=== PATIENT | female | born 1960 | race Caucasian/White ===

== ENCOUNTER 2017-03-27 10:45 | Emergency (ER) | payer BC ==
--- NOTE | 2017-03-27 11:43 | ERNOTE ---
Upper Extremity HPI - General Extremities Pain Location: arm: left, forearm: left Time Seen by Provider: 03/27/17 10:59 Source: patient Exam Limitations: no limitations - Immun/Allergies/Home Medications Immunizations: IMMUNIZATION HX Immunizations Up to Date Yes History of Influenza Vaccine Yes Hx Pneumococcal Vaccination No Allergies/Adverse Reactions: Allergies Allergy/AdvReac Type Severity Reaction Status Date / Time No Known Allergies Allergy Unverified 03/27/17 10:53 Home Medications: HOME MEDICATIONS Carvedilol 03/27/17 [Last Taken Unknown] HYDROcodone/ACETAMINOPHEN [[place] 5-325] 1 each PO Q4H #20 tablet 03/27/17 [Last Taken Unknown] Losartan-Hctz 100-12.5 mg Tab 03/27/17 [Last Taken Unknown] Neurontin 03/27/17 [Last Taken Unknown] Plaquenil 03/27/17 [Last Taken Unknown] Prilosec 03/27/17 [Last Taken Unknown] - History of Present Illness Narrative: Patient was preparing supper last night and tripped over the dog and injured her proximal left humerus and left forearm as well as striking the right side of her chest on the refrigerator. She now complains of moderate pain in the respective areas of the injuries. She states she is having some pain on deep breath in the right side of the chest. Occurred: yesterday Location of Incident: home Severity: moderate, severe Method of Injury: Reports: fell Reason for Fall: Reports: tripped Loss of Consciousness: Reports: no loss of consciousness Other Injuries: Reports: none Review of Systems - Review of Systems Constitutional: Present: See HPI EYE: Present: no symptoms reported ENT: Present: no symptoms reported Respiratory: Present: no symptoms reported Cardiology: Present: chest pain Gastrointestinal/Abdominal: Present: no symptoms reported Genitourinary: Present: no symptoms reported Musculoskeletal: Present: other - pain in the area of the left deltoid as well as the left forearm Skin: Present: no symptoms reported Neurological: Present: no symptoms reported Endocrine: Present: no symptoms reported Hematologic/Lymphatic: Present: no symptoms reported Psych: Present: no symptoms reported - Patient's Past Medical History Patient History - Medical: GERD, Headache Patient History - Cardiac/Respiratory: Hypertension Patient History - Cancer: No Hx of Cancer Patient History - Surgical Procedures: Cholecystectomy, , Hysterectomy , Pacemaker Patient History - Other: None - Social History Living Situations: home Abuse History: No History of abuse Psych History: No pertinent hx Smoking Status: Current every day smoker Have you smoked in the past 12 months: Yes Do you dip or chew tobacco: No Alcohol Use: occasionally Drug Use: none - Immunizations Immunizations Up to Date: Yes Hx Pneumococcal Vaccination: No History of Influenza Vaccine: Yes Physical Exam - Physical Exam General Appearance: Present: wd/wn, alert, moderate distress, severe distress Head Exam: Present: normal inspection Eye Exam: Normal inspection: bilateral, PERRL: bilateral Ears, Nose, Throat: Present: normal ENT inspection, H, normal pharynx Neck: Present: normal inspection, nontender Respiratory: Present: no respiratory distress, normal breath sounds, no accessory muscle use, lungs clear, chest tenderness - chest is tender under the right breast, she is splinting somewhat on deep breath as well Cardiovascular/Chest: Present: regular rate, rhythm, no murmur, normal peripheral pulses Gastrointestinal/Abdominal: Present: normal bowel sounds, nontender, nondistended, soft, no organomegaly Rectal Exam: Present: deferred Back Exam: Present: normal inspection, normal range of motion Extremity Exam: Present: normal range of motion, no edema, other - elbow tenderness to the left deltoid left forearm with bruising present in both the deltoid area and the left forearm, she does appear to have reasonable range of motion of the left shoulder Neurological Exam: Present: alert, oriented, normal mood/affect Skin Exam: Present: normal color, warm/dry Lymphatic Exam: Present: no adenopathy ED Progress - Vital Signs Patient's Vital Signs:: I have reviewed the patient's vital signs. Vital Signs: Vital Signs 03/27/17 10:50 Temperature 36.6 C Pulse Rate 63 Respiratory 16 Rate Blood Pressure 162/95 O2 Sat by Pulse 100 Oximetry - X-Ray X-Ray #1 X-Ray: chest Interpretation: Reviewed by me X-Ray #2 X-Ray: ribs Interpretation: Reviewed by me X-Ray #3 X-Ray: humerus Interpretation: Reviewed by me X-Ray #4 X-Ray: forearm Interpretation: Reviewed by me - Progress/Reassessment Chief Complaint: Upper Extremity Injury/Problem Plan - Plan Plan: While there are no obvious fractures noted on any x-rays there are some questionable areas in both the left elbow, and right rib cage. Exactly where the questionable fractures could be his wishes painful and patient will be placed in a sling for the left elbow area and pain medicine for the right rib cage. Patient was instructed to call her family physician to be checked out in approximately a week give or take. She is aware she may need to have a second set of x-rays done as these may reveal an occult fracture. Departure Clinical Impression: Shoulder contusion Qualifiers: Encounter type: initial encounter Laterality: left Qualified Code(s): S40.012A - Contusion of left shoulder, initial encounter Elbow contusion Qualifiers: Encounter type: initial encounter Laterality: left Qualified Code(s): S50.02XA - Contusion of left elbow, initial encounter Rib contusion Qualifiers: Encounter type: initial encounter Laterality: right Qualified Code(s): S20.211A - Contusion of right front wall of thorax, initial encounter - Departure Disposition: Home self-care Condition: Good Instructions: Contusion, [id number], Elbow Contusion, Chest Contusion, Easy- to-Read, Rib Fracture, [id number] Additional Instructions: Call your family physician for an appointment Prescriptions: HYDROcodone/ACETAMINOPHEN [[place] 5-325] 1 each PO Q4H #20 tablet
[2017-03-27 12:30] VITALS: BP 158/106
== END 2017-03-27 12:45 | disposition home or self-care (01) ==
LOC: ER 10:45
DX: S40.012A Contusion of left shoulder, initial encounter (principal); S50.02XA Contusion of left elbow, initial encounter; S20.211A Contusion of right front wall of thorax, initial encounter; W18.31XA Fall on same level due to stepping on an object, initial encounter; Y93.G3 Activity, cooking and baking; Y92.000 Kitchen of unspecified non-institutional (private) residence as the place of occurrence of the external cause; F17.200 Nicotine dependence, unspecified, uncomplicated

== ENCOUNTER 2019-01-19 05:13 | Inpatient (IN) ==
[2019-01-19] MEDS ORDERED: MORPHINE SULFATE 2 MG/ML DISP.SYRIN IV ONE ×2 (05:29→06:13)
--- NOTE | 2019-01-19 05:34 | ERNOTE ---
Trauma/Assault HPI - General Stated Complaint: ETOH. FALL HIP PAIN Time Seen by Provider: 01/19/19 05:16 Source: patient Exam Limitations: intoxication - Immun/Allergies/Home Medications Immunizations: IMMUNIZATION HX Immunizations Up to Date Yes History of Influenza Vaccine Yes Hx Pneumococcal Vaccination Yes Allergies/Adverse Reactions: Allergies No Known Allergies Allergy (Unverified 03/27/17 10:53) Home Medications: HOME MEDICATIONS Gabapentin [Neurontin] 300 mg PO TID 01/19/19 [Last Taken Unknown] Losartan Potassium 100 mg PO DAILY 01/19/19 [Last Taken Unknown] Omeprazole [Prilosec] 20 mg PO DAILY 01/19/19 [Last Taken Unknown] - History of Present Illness Narrative: Pt states she was at home painting and she fell. She is unsure why or how. She states she laid on the floor for 2 hours before her woke up and called EMS. She complains of left hip and left wrist pain. Location Occurred: Reports: home Pain Location: Reports: upper extremity, lower extremity Method of Injury: Reports: fall Severity: moderate Modifying Factors - (Improves): Reports: immobilization Modifying Factors - (Worsens): Reports: movement Loss of Consciousness: Reports: unsure Review of Systems - Review of Systems Respiratory: Absent: shortness of breath Cardiology: Absent: chest pain Gastrointestinal/Abdominal: Present: other - heartburn. Absent: nausea, vomiting Musculoskeletal: Present: See HPI Skin: Absent: rash Neurological: Absent: numbness, tingling Medical History (Updated 01/19/19 @ 06:41 by Robert Tolliver DO) Hypertension Irregular heart rhythm Pacemaker Dual Surgical History: Surgical History (Updated 01/19/19 @ 05:43 by Loly Zurita RN) History of cardiac radiofrequency ablation History of delivery History of cholecystectomy Status post biventricular cardiac pacemaker insertion Social History: (Last Reviewed 01/19/19 @ 06:01 by Robert Tolliver DO) Tobacco: Smoking Status: Current every day smoker Smoking cigarettes per day: 10 Alcohol: alcohol intake frequency: a few times a week Substance Use: substance use type: does not use Physical Exam - Physical Exam General Appearance: Present: wd/wn, alert, moderate distress Head Exam: Present: normal inspection, no evidence of injury Neck: Present: normal inspection, nontender Respiratory: Present: no respiratory distress, no accessory muscle use Gastrointestinal/Abdominal: Present: nontender, nondistended, soft Back Exam: Present: normal inspection, normal range of motion Extremity Exam: Present: normal except - - Left hip tender mostly anteriorly., bony tenderness - Left lateral wrist and left hip. Neurological Exam: Present: alert, oriented, no motor/sensory deficits Skin Exam: Present: normal color, warm/dry - C-Spine cleared by: Neg history & exam - T, L-Spine cleared by: Neg hx and exam - Long Board: Back visualized Progress - Results and Orders Patient's Lab Results:: I have reviewed the patient's lab results. Results and Orders: Laboratory Tests 01/19/19 07:00 WBC 11.7 H Hgb 11.4 L Hct 33.0 L Plt Count 161 Neutrophils % 84.7 H - Vital Signs Patient's Vital Signs:: I have reviewed the patient's vital signs. Vital Signs: Vital Signs 01/19/19 05:16 Temperature 36.7 C Pulse Rate 69 Respiratory Rate 20 Blood Pressure 149/82 H O2 Sat by Pulse Oximetry 100 - X-Ray X-Ray #1 X-Ray: hip Interpretation: Interp. by me X-ray Comments: Comminuted displaced intertrochanteric fracture of the left hip X-Ray #2 X-Ray: wrist Interpretation: Interp. by me X-ray Comments: There is an abnormality in the distal radius although there is no clear fracture line. - Progress/Reassessment Progress:: Improved Progress Note-Subjective: 01/19/19 06:28 I spoke with Raz Trotter PA-C and he asks the patient to be admitted to medicine and they will consult. 01/19/19 06:[address] Rich and he agrees with admission. Departure Clinical Impression: Intertrochanteric fracture of left femur Qualifiers: Encounter type: initial encounter Fracture type: closed Fracture alignment: displaced Qualified Code(s): S72.142A - Displaced intertrochanteric fracture of left femur, initial encounter for closed fracture Wrist injury Qualifiers: Encounter type: initial encounter Laterality: left Qualified Code(s): S69.92XA - Unspecified injury of left wrist, hand and finger(s), initial encounter - Departure Disposition: Still a patient Condition: Good Critical Care Time - Critical Care Critical Time Spent:: No
[2019-01-19] MEDS ORDERED: ceFAZolin SODIUM 1 GM VIAL IV PRN (06:00)
[2019-01-19] MEDS ORDERED: FAMOTIDINE 10 MG/ML VIAL IV ONE (06:40)
[2019-01-19 07:10] LABS: Hemoglobin 11.4 gm/dL (12.5-16.0); Mean Cell Volume 100.3 fl (78-100); Mean Corpuscular Hemoglobin 34.7 pg (27-31); Mean Corpuscular Hgb Conc 34.5 g/dl (32-36); Mean Platelet Volume 9.7 fl (8-12.5); Neutrophil # 9.9 K/mm3 (1.3-6.0); Neutrophil % 84.7 % (42-75.0); Platelet Count 161 K/mm3 (150-450); Red Blood Count 3.29 M/mm3 (4.2-5.4); Red Cell Distribution Width 13.2 % (11.5-14.0); White Blood Count 11.7 K/mm3 (4.0-10.5)
[2019-01-19 07:24] LABS: Albumin * 3.4 gm/dl (3.4-5.0); Anion Gap 14.5 mmol/L (6.8-13.8); Bilirubin, Total 0.4 mg/dL (0.0-1.1); Ca. Corrected For Albumin 8.1 mg/dL (8.4-10.2); Calcium * 7.9 mg/dL (7.9-10.9); Carbon Dioxide 24.9 mmol/L (24-32.6); Potassium 4.4 mmol/L (3.4-4.6); Total Protein 7.4 gm/dL (6.2-8.2)
[2019-01-19 07:30] LABS: BUN/Creatinine Ratio 19.8 (9.0-21.6)
--- NOTE | 2019-01-19 08:03 | CONS ---
- Reason for consultation (1) Intertrochanteric fracture of left femur Date of Service: 01/19/19 HPI - General Date of Service: 01/19/19 Narrative: 58-year-old female states she was painting at home and fell. She notes it was a few hours prior to being found and brought in by her through EMS. Patient notes she has significant pain with any movement of her left hip. She also notes that she has significant left wrist pain. She notes it is mostly tender to touch. She notes no other acute symptoms currently. Her pain in her left hip is significantly worse when patient moves versus when she is at rest. Source: patient - History of Present Illness Allergies/Adverse Reactions: Allergies No Known Allergies Allergy (Unverified 03/27/17 10:53) Home Medications: Home Medications Medication Instructions Recorded Last Taken Gabapentin [Neurontin] 300 mg PO TID 01/19/19 Unknown Losartan Potassium 100 mg PO DAILY 01/19/19 Unknown Omeprazole [Prilosec] 20 mg PO DAILY 01/19/19 Unknown Physical Examination - Exam Vital Signs: Vital Signs - Last Taken Temp 36.7 C 01/19/19 05:16 Pulse 64 01/19/19 06:39 Resp 16 01/19/19 06:39 BP 142/42 H 01/19/19 06:39 Pulse Ox 96 01/19/19 06:39 O2 Oxygen Delivery Method Room Air Constitutional: Present: Alert, Mild distress Extremity: Present: other - LUE--> sensation intact light touch, 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 strength 4+/5, diffuse ecchymosis over the radial aspect of wrist, no significant wounds, small bandage in place near thumb, tenderness to palpation distal radius -LLE--> sensation intact light touch, distal capillary refill brisk, diffuse moderate tenderness about left hip, no significant obvious wounds, mild external rotation of extremity Eye contact: Present: cooperative - Results and Findings: Lab/Microbiology results last 24 hrs: Abnormal/Pending Laboratory Last 24 HRS 01/19/19 01/19/19 01/19/19 07:00 07:00 07:00 WBC 11.7 H RBC 3.29 L Hgb 11.4 L Hct 33.0 L MCV 100.3 H MCH 34.7 H Immature Gran % (Auto) 0.60 H Immature Gran # (Auto) 0.07 H Neutrophils % 84.7 H Lymphocytes % 9.6 L Neutrophils # 9.9 H Lymphocytes # 1.12 L Anion Gap 14.5 H Calcium Adj for Albumin 8.1 L AST 99 H Ethyl Alcohol 212.0 H - Assessments/Findings (1) Intertrochanteric fracture of left femur Problem: Acute Qualifiers: Encounter type: initial encounter Fracture type: closed Fracture alignment: displaced Qualified Code(s): S72.142A - Displaced intertrochanteric fracture of left femur, initial encounter for closed fracture Plan - Plan Plan: -58 y/o female status post a fall with a left intertrochanteric femur fracture -Discussed with patient conservative or surgical intervention including risk first benefits including but not limited to infection, bleeding, malunion versus nonunion fracture healing, stroke and cardiac risk, DVT, inherent surgical risks. Discussed with patient possible treatments and the pertinent risks with each. Patient wishes to proceed with surgical intervention. Discussed with patient that could possibly be today versus tomorrow based on availability of surgical instruments and schedule. Note that patient does have a significant history of daily alcohol use and possible alcohol abuse. Medical team is aware and has been informed per nursing. Note the patient was cooperative and understanding during exam and consent.
[2019-01-19 08:17] LABS: Urine Bilirubin Negative (NEGATIVE); Urine Ketone Negative (NEGATIVE); Urine Nitrite Negative (NEGATIVE); Urine Protein Negative (NEGATIVE); Urine Specific Gravity <=1.005 SP.GR. (1.005-1.010); Urine Urobilinogen Normal (NORMAL)
[2019-01-19] MEDS: RINGER'S SOLUTION,LACTATED 1,000 ML IV PRN ×2 (08:53→15:10)
[2019-01-19 08:54] LABS: Urine Appearance Clear (CLEAR); Urine Bacteria TRACE; Urine Blood 5 /ul (NEGATIVE); Urine Color Pale Yellow; Urine RBC None Seen /hpf (0-5); Urine WBC None Seen /hpf (0-5)
[2019-01-19] MEDS: MORPHINE SULFATE 2 MG/ML DISP.SYRIN IV PRN ×5 (09:04→22:27)
[2019-01-19] MEDS ORDERED: MULTIVIT INFUSN,ADULT 4,VIT K 10 ML, THIAMINE HCL 100 MG in DEXTROSE 5 % IN WATER 1,000 ML IV ONE ×3 (09:55)
[2019-01-19] MEDS ORDERED: DIAZEPAM 5 MG/ML SYRG IV PRN (09:58)
[2019-01-19 10:18] LABS: INR 1.06 INR (0.92-1.08); Partial Thrombolplastin Time 24.7 Seconds (24-32); Prothrombin Time (Patient) 10.5 Seconds (9.1-10.7)
--- NOTE | 2019-01-19 10:49 | HP ---
Chief Complaint - Chief Complaint Date of Service: 01/19/19 Time of Service: 10:47 Chief Complaint: left hip and wrist pain History of Present Illness: 58-year-old female with history of alcohol abuse, hypertension, tobacco abuse presented to the ER after a ground-level fall for left hip and wrist pain. Patient states that she had drank 3 or 4 drinks prior to the incident. Hip x-ray showed acute complex comminuted intertrochanteric fracture of the left hip, wrist x-ray showed distal radius fracture. Ortho was consulted for repair of the left hip. Patient denies excessive alcohol intake though states that she drinks anywhere from 10-12 drinks per night and has been doing this for the last 40 to 45 days. Lab work in the ER showed her to be slightly anemic with a hemoglobin at 11.4 and hematocrit at 33. MCV was 100.3. Coag panel within normal limits. Chemistry panel within normal limits, patient has good kidney function and normal ultralights. Elevated AST and 99. Toxicology shows her alcohol level to be 212. Chronic medication the patient takes include Wellbutrin, Xanax, gabapentin, losartan. She is also on an inhaler likely due to her tobacco abuse. Currently her vital signs been stable and she is been afebrile. Medical History (Updated 01/19/19 @ 11:20 by Gabriela Johnson RN) Bone spur of ankle removed COPD (chronic obstructive pulmonary disease) Hypertension Irregular heart rhythm Lupus Mitral valve disorder Pacemaker Dual Surgical History: Surgical History (Updated 01/19/19 @ 05:43 by Loly Zurita RN) History of cardiac radiofrequency ablation History of delivery History of cholecystectomy Status post biventricular cardiac pacemaker insertion Family History: Family History (Last Updated 01/19/19 @ 09:12 by Gabriela Johnson RN) Father Bradycardia Mother CVA (cerebral vascular accident) Mitral valve disorder Brother Mitral valve disorder Sister Mitral valve disorder Social History: (Last Updated 01/19/19 @ 09:13 by Gabriela Johnson RN) Tobacco: Smoking Status: Current every day smoker Smoking cigarettes per day: 10 counseling given: support medications Alcohol: alcohol intake: current Alcohol type: beer alcohol intake frequency: a few times a week Substance Use: substance use type: does not use Review Of Systems (GEN) - Review of Systems Generalized/Overall Review: Absent: Weakness, Chills, Fever EENTM: Present: No Symptoms Reported Respiratory: Absent: Cough, Shortness of Breath Cardiac: Absent: Chest Pain, Edema, Palpitations Abdominal: Absent: Nausea, Vomiting, Abdominal Pain Genitourinary: Present: No Symptoms Reported Musculoskeletal: Present: Joint Pain - Left hip, left wrist Neurological: Absent: Headache, Numbness, Parasthesia, Tingling Skin: Present: No Symptoms Reported Immunizations: IMMUNIZATION HX Immunizations Up to Date Yes History of Influenza Vaccine Yes Hx Pneumococcal Vaccination Yes Allergies/Adverse Reactions: Allergies Allergy/AdvReac Type Severity Reaction Status Date / Time codeine Allergy Intermediate Other Verified 01/19/19 09:14 cephalexin [From Keflex] AdvReac Mild Headache Verified 01/19/19 09:14 Home Medications: HOME MEDICATIONS ALPRAZolam [Xanax] 0.5 mg PO BID 01/19/19 [Last Taken Unknown] Albuterol Sulfate [Ventolin HFA] 2 puff INHALATION QID 01/19/19 [Last Taken Unknown] Fluticasone/Salmeterol [Advair 100-50 Diskus] 1 puff INHALATION BID 01/19/19 [Last Taken Unknown] Gabapentin [Neurontin] 300 mg PO TID 01/19/19 [Last Taken Unknown] Losartan Potassium 100 mg PO DAILY 01/19/19 [Last Taken Unknown] Omeprazole [Prilosec] 20 mg PO DAILY 01/19/19 [Last Taken Unknown] amLODIPine BESYLATE [Norvasc] 20 mg PO DAILY 01/19/19 [Last Taken Unknown] buPROPion HCL [Wellbutrin] 300 mg PO DAILY 01/19/19 [Last Taken Unknown] Exam - Exam Vital Signs: Vital Signs - Last Taken Temp 36.7 C 01/19/19 05:16 Pulse 64 01/19/19 06:39 Resp 16 01/19/19 06:39 BP 142/42 H 01/19/19 06:39 Pulse Ox 96 01/19/19 06:39 Constitutional: Present: Alert, Oriented x3, Cooperative, Acute distress ENT Exam: Present: hearing grossly normal Eye Exam: bilateral eye: normal inspection, PERRL, EOMI Neck: Present: non-tender, supple Back Exam: Present: normal inspection, no CVA tenderness Respiratory: Present: lungs clear, normal breath sounds, no respiratory distress Cardiovascular/Chest: Present: regular rate, rhythm, no murmur Peripheral Pulses: dorsalis-pedis (R): 2+, dorsalis-pedis (L): 2+ Abdomen: Present: Normal bowel sounds, soft, nontender, nondistended /Rectal: Present: Exam deferred Extremity: Present: normal capillary refill - Left lower extremity, leg pain - Left lower extremity Skin Exam: Present: normal color, warm/dry Neurologic: Present: no motor/sensory deficits, alert, oriented x 3 Eye contact: Present: cooperative, good eye contact, normal speech Thoughts: Present: normal thought pattern. Absent: delusions, tactile hallucinations, visual hallucinations Diagnostic Studies: Abnormal Lab Results 01/19/19 01/19/19 01/19/19 Range/Units 07:00 07:00 07:00 WBC 11.7 H (4.0-10.5) K/mm3 RBC 3.29 L (4.2-5.4) M/mm3 Hgb 11.4 L (12.5-16.0) gm/dL Hct 33.0 L (37.0-47.0) % MCV 100.3 H (78-100) fl MCH 34.7 H (27-31) pg Immature Gran % (Auto) 0.60 H (0.001-0.429) % Immature Gran # (Auto) 0.07 H (0.000-0.0310) K/mm3 Neutrophils % 84.7 H (42-75.0) % Lymphocytes % 9.6 L (20-51) % Neutrophils # 9.9 H (1.3-6.0) K/mm3 Lymphocytes # 1.12 L (1.5-3.5) k/mm3 Anion Gap 14.5 H (6.8-13.8) mmol/L Calcium Adj for Albumin 8.1 L (8.4-10.2) mg/dL AST 99 H (0-48) U/L Urine Blood (NEGATIVE) /ul Ethyl Alcohol 212.0 H (0.0-10.0) mg/dL 01/19/19 Range/Units 07:52 WBC (4.0-10.5) K/mm3 RBC (4.2-5.4) M/mm3 Hgb (12.5-16.0) gm/dL Hct (37.0-47.0) % MCV (78-100) fl MCH (27-31) pg Immature Gran % (Auto) (0.001-0.429) % Immature Gran # (Auto) (0.000-0.0310) K/mm3 Neutrophils % (42-75.0) % Lymphocytes % (20-51) % Neutrophils # (1.3-6.0) K/mm3 Lymphocytes # (1.5-3.5) k/mm3 Anion Gap (6.8-13.8) mmol/L Calcium Adj for Albumin (8.4-10.2) mg/dL AST (0-48) U/L Urine Blood 5 H (NEGATIVE) /ul Ethyl Alcohol (0.0-10.0) mg/dL Laboratory Results WBC 11.7 K/mm3 (4.0-10.5) H 01/19/19 07:00 RBC 3.29 M/mm3 (4.2-5.4) L 01/19/19 07:00 Hgb 11.4 gm/dL (12.5-16.0) L 01/19/19 07:00 Hct 33.0 % (37.0-47.0) L 01/19/19 07:00 MCV 100.3 fl (78-100) H 01/19/19 07:00 MCH 34.7 pg (27-31) H 01/19/19 07:00 MCHC 34.5 g/dl (32-36) 01/19/19 07:00 RDW 13.2 % (11.5-14.0) 01/19/19 07:00 Plt Count 161 K/mm3 (150-450) 01/19/19 07:00 MPV 9.7 fl (8-12.5) 01/19/19 07:00 Immature Gran % (Auto) 0.60 % (0.001-0.429) H 01/19/19 07:00 Immature Gran # (Auto) 0.07 K/mm3 (0.000-0.0310) H 01/19/19 07:00 84.7 % (42-75.0) H 01/19/19 07:00 9.6 % (20-51) L 01/19/19 07:00 4.6 % (0.0-9) 01/19/19 07:00 0.2 % (0.0-3.0) 01/19/19 07:00 0.3 % (0.0-1.0) 01/19/19 07:00 Nucleated RBC % 0.0 k/mm3 (0-1) 01/19/19 07:00 9.9 K/mm3 (1.3-6.0) H 01/19/19 07:00 1.12 k/mm3 (1.5-3.5) L 01/19/19 07:00 0.5 k/mm3 (0.0-1.0) 01/19/19 07:00 0.0 k/mm3 (0.0-0.7) 01/19/19 07:00 Absolute Basophils 0.0 k/mm3 (0.0-0.1) 01/19/19 07:00 PT 10.5 Seconds (9.1-10.7) 01/19/19 06:50 INR (Anticoag Therapy) 1.06 INR (0.92-1.08) 01/19/19 06:50 PTT ([place]) 24.7 Seconds (24-32) 01/19/19 06:50 Sodium 134 mmol/L (132-142) 01/19/19 07:00 134 mmol/L (130-142) 01/19/19 07:00 Potassium 4.4 mmol/L (3.4-4.6) 01/19/19 07:00 Chloride 99 mmol/L (97-106) 01/19/19 07:00 Carbon Dioxide 24.9 mmol/L (24-32.6) 01/19/19 07:00 14.5 mmol/L (6.8-13.8) H 01/19/19 07:00 BUN 17 mg/dL (3-23) 01/19/19 07:00 0.86 mg/dL (0.4-1.4) 01/19/19 07:00 Est GFR (Non-Af Amer) 72 mL/min (60-130) 01/19/19 07:00 19.8 (9.0-21.6) 01/19/19 07:00 103 mg/dL (70-110) 01/19/19 07:00 Calcium 7.9 mg/dL (7.9-10.9) 01/19/19 07:00 Calcium Adj for Albumin 8.1 mg/dL (8.4-10.2) L 01/19/19 07:00 0.4 mg/dL (0.0-1.1) 01/19/19 07:00 AST 99 U/L (0-48) H 01/19/19 07:00 ALT 50 U/L (19-67) 01/19/19 07:00 95 U/L (50-170) 01/19/19 07:00 7.4 gm/dL (6.2-8.2) 01/19/19 07:00 3.4 gm/dl (3.4-5.0) 01/19/19 07:00 Pale yellow 01/19/19 07:52 Clear (CLEAR) 01/19/19 07:52 6.0 pH (5.0-7.0) 01/19/19 07:52 Ur Specific [place] <=1.005 SP.GR. (1.005-1.010) 01/19/19 07:52 Negative mg/dL (NEGATIVE) 01/19/19 07:52 Negative mg/dL (NEGATIVE) 01/19/19 07:52 Negative mg/dL (NEGATIVE) 01/19/19 07:52 5 /ul (NEGATIVE) H 01/19/19 07:52 Negative (NEGATIVE) 01/19/19 07:52 Negative mg/dl (NEGATIVE) 01/19/19 07:52 Normal EU/dl (NORMAL) 01/19/19 07:52 Ur Leukocyte Esterase Negative /ul (NEGATIVE) 01/19/19 07:52 None seen /hpf (0-5) 01/19/19 07:52 None seen /hpf (0-5) 01/19/19 07:52 Ur Epithelial Cells None seen /hpf (0-5) 01/19/19 07:52 Trace (NONE) 01/19/19 07:52 Culture to follow 01/19/19 07:52 Ethyl Alcohol 212.0 mg/dL (0.0-10.0) H 01/19/19 07:00 Assessment/Plan - Narrative Narrative: Patient admitted to the floor under inpatient. Plan is to take patient back for repair of left femur with Ortho team. Calculated surgical risk with patient's comorbidities and patient has a slightly higher risk of serious complication due to her alcoholism. (12.7% versus 11.5%). Patient currently stable though with low CIWA score, vital signs are stable. Recommend surgery today before patient likely to begin the withdrawal process. Discussed this with Ortho who is in agreement with this treatment plan, Dr. Ortez plans on taking her back later this afternoon. Patient's hemoglobin and hematocrit within an acceptable range. Patient currently n.p.o. Patient cleared for surgery if within the next 12 hours. Alcohol assessment ordered which the nurses will perform. PRN Valium to be given for alcohol withdrawal according to CIWA scales. Will order as needed IV hypertensive medications for systolic greater than 160 or diastolic greater than 100 while patient is n.p.o. Will restart her medications for her hypertension after this. We will provide nicotine patch for tobacco dependence following surgery. Restart depression medications once no longer n.p.o. Left wrist currently braced to provide protection and relief for distal left radial fracture. Patient currently has SCD for right lower extremity for DVT prophylaxis. Nurse will call with any questions or concerns. - Assessment/Plan (1) Intertrochanteric fracture of left femur Problem: Acute Qualifiers: Encounter type: initial encounter Fracture type: closed Fracture alignment: displaced Qualified Code(s): S72.142A - Displaced intertrochanteric fracture of left femur, initial encounter for closed fracture (2) Alcohol abuse Problem: Chronic (3) Hypertension Problem: Chronic (4) Distal radius fracture Problem: Acute (5) Tobacco abuse Problem: Chronic
[2019-01-19] MEDS ORDERED: hydrALAZINE HCL 20 MG/ML VIAL IV PRN (11:49)
--- NOTE | 2019-01-19 14:45 | ANES ---
Anesthesia Pre Procedure Eval Vitals/Labs: Last Vital Signs Temp 37.4 C 01/19/19 14:07 Pulse 80 01/19/19 14:07 Resp 18 01/19/19 14:07 BP 121/71 01/19/19 14:07 Pulse Ox 96 01/19/19 14:07 HOME MEDICATIONS ALPRAZolam [Xanax] 0.5 mg PO BID 01/19/19 [Last Taken Unknown] Albuterol Sulfate [Ventolin HFA] 2 puff INHALATION QID 01/19/19 [Last Taken Unknown] Fluticasone/Salmeterol [Advair 100-50 Diskus] 1 puff INHALATION BID 01/19/19 [Last Taken Unknown] Gabapentin [Neurontin] 300 mg PO TID 01/19/19 [Last Taken Unknown] Losartan Potassium 100 mg PO DAILY 01/19/19 [Last Taken Unknown] Omeprazole [Prilosec] 20 mg PO DAILY 01/19/19 [Last Taken Unknown] amLODIPine BESYLATE [Norvasc] 20 mg PO DAILY 01/19/19 [Last Taken Unknown] buPROPion HCL [Wellbutrin] 300 mg PO DAILY 01/19/19 [Last Taken Unknown] Allergies/Adverse Reactions: Allergies Allergy/AdvReac Type Severity Reaction Status Date / Time codeine Allergy Intermediate Other Verified 01/19/19 09:14 cephalexin [From Keflex] AdvReac Mild Headache Verified 01/19/19 09:14 - Planned Procedure Planned Procedure: Left Hip Fracture Medication List Reviewed:: Yes Allergies Verified: Yes Medical History (Updated 01/19/19 @ 11:51 by Farhad Rich DO) Bone spur of ankle removed COPD (chronic obstructive pulmonary disease) Hypertension Irregular heart rhythm Lupus Mitral valve disorder Pacemaker Dual Surgical History (Updated 01/19/19 @ 05:43 by Loly Zurita RN) History of cardiac radiofrequency ablation History of delivery History of cholecystectomy Status post biventricular cardiac pacemaker insertion Family History (Last Reviewed 01/19/19 @ 14:41 by Rowdy Johnson CRNA) Father Bradycardia Mother CVA (cerebral vascular accident) Mitral valve disorder Brother Mitral valve disorder Sister Mitral valve disorder - Family Anesthesia History Family History:: no untoward family reactions to anesthesia, no familial bleeding tendencies, no family history of clotting disorders, no family history of premature - Airway/Neck/Teeth Within Normal Limits:: Yes Teeth Condition: intact Neck Exam: full range of motion Mallampatti Score: 2 Thyromental (T-M) distance: > 6 cm Mandibulo Hyoid distance: > 3 cm - Respiratory Respiratory History: COPD Respiratory Physical: decreased breath sounds - coarse Smoking Status: Former smoker - quit recently after heavy history Discussed smoking cessation including day of surgery: Yes Sleep Apnea currently treated: No Sleep Apnea by current assessment: No - Cardiovascular Cardiac History: arrhythmia - pacemaker, hypertension, valvular heart disease Tolerate Activity: Fair Heart Sounds: S1 & S2, Regular - Anesthesia Assessment and Plan ASA Class: PS, III Anesthesia Type Plan: Spinal
[2019-01-19] MEDS ORDERED: NORMAL SALINE 1,000 ML IV PRN (16:33)
[2019-01-19] MEDS ORDERED: ACETAMINOPHEN 500 MG TABLET PO PRN (16:33)
[2019-01-19] MEDS ORDERED: MAGNESIUM HYDROXIDE 30 ML UDC PO PRN (16:33)
[2019-01-19] MEDS ORDERED: MORPHINE SULFATE 2 MG/ML DISP.SYRIN IV PRN (16:33)
[2019-01-19] MEDS ORDERED: ONDANSETRON HCL/PF 2 MG/ML VIAL IV PRN (16:33)
[2019-01-19] MEDS ORDERED: MAG HYDROX/ALUMINUM HYD/SIMETH 30 ML UDC PO PRN (16:33)
[2019-01-19] MEDS ORDERED: oxyCODONE HCL/ACETAMINOPHEN 1 TAB TABLET PO PRN (16:33)
--- NOTE | 2019-01-19 16:38 | OR ---
Operative Report - Dictated Report Narrative: Date: 01/19/2019 Surgeon: Michael Ortez M.D. Die Storage Clerk: None Preoperative diagnosis: Left intertrochanteric femur fracture Postoperative diagnosis: Left intertrochanteric femur fracture Operations and procedures: 1. Closed reduction, cephalo-medullary fixation left intertrochanteric femur fracture 2. Intraoperative interpretation of radiographs Anesthesia: Spinal Specimens: None Estimated blood loss: 200 milliliters Retained implants: [employer] Trigen InterTAN 130 degree size 10 mm by 20 centimeter nail with 95 millimeter lag screw and 90 millimeter compression screw, with distal locking screw Complications: None Indications for procedure: Bere is a 58-year-old female with a history of alcohol abuse who injured the left leg after a fall from standing height in her home. She was admitted to the hospital after being evaluated in the emergency department. Once the medical provider felt that they were stable for surgical treatment, the risks and benefits alternatives were discussed. The risks of , blood clots, bleeding, infection, nerve/tendon/blood vessel injury, malunion, nonunion, failure of implants, painful implants, arthrosis, and need for additional procedures were discussed. The extremity was marked and consent was obtained on the floor. Procedure: After marking the operative extremity on the floor, the patient was taken to the operating room. A timeout was performed. IV antibiotics consisting of 1 g of Ancef were administered. A spinal anesthetic was induced by anesthesia, and the patient was then placed onto a fracture table with a well-padded perineal post. The non-operative leg was placed in a well-padded well leg jeffrey in lithotomy position with an SCD on the leg. The operative leg was placed in a well-padded traction boot. Longitudinal traction, internal rotation, flexion, and adduction were utilized in order to reduce the fracture. Preliminary images were attained utilizing C-arm in both the AP and lateral views. This confirmed that we had obtained adequate visualization of the fracture as well as reduction. Next the hip was then prepped and draped in a standard sterile fashion. Next, the guidewire was placed percutaneously proximal to the greater trochanter to eddy a starting point at the tip of the greater trochanter centered on the lateral view. This was advanced down to the level below the lesser trochanter. A scalpel was utilized to dissect down to the greater trochanter in order to lace the soft tissue protector down to bone. The entry reamer was then advanced down the proximal femur to the level of the lesser trochanter. The above nail was then selected and impacted into place. The outrigger was utilized in order to confirm the appropriate depth of the nail. Using the alignment device on the outrigger, a nirmal incision was made over the lateral femur. Sharp dissection was carried through the iliotibial band down to the proximal femur. The guidewire was was placed into the femoral head in a center center position on AP and lateral views. A tip apex distance less than 25 mm combined was obtained. Once we felt that we had placed the guidewire in the appropriate position, it was measured. Next the compression screw entry drill was advanced through the lateral cortex. This was then drilled down to the appropriate depth for the compression screw, again confirming that we are within the confines the bone. The derotational bar was then placed and the lag screw was drilled to the appropriate depth. The lag screw was then secured in place ensuring that we were within the confines of the bone. The compression screw was then inserted allowing for com pression while releasing the traction on the leg. Using C-arm this was visualized to allow for compression across the fracture site. Once it was felt we had adequately stabilized the intertrochanteric fracture, the distal interlocking screw was placed in a static position confirmed to be the appropriate length and within the nail on both AP and lateral views. The nail was secured allowing for controlled compression and the outrigger was removed. The wounds were then thoroughly irrigated. Final images were obtained. The hip was placed through range of motion and showed no crepitance. The deep fascia was closed with 0 Vicryl, the subcutaneous tissue with 3-0 Vicryl, and the skin was closed with gay. Sterile dressings of Xeroform, 4 x 4s, and tegaderm were applied. All sponge, sharp, and instrument counts were correct prior to closing the wounds. The patient was then awoken and transferred to the postanesthesia care unit in stable condition.
--- NOTE | 2019-01-19 16:49 | ANES ---
Post Anesthesia Discharge - Transfer of Care Transfer of Care handoff given to nurse: Yes - Discharge from PACU Discharge from PACU when meets criteria: Yes - Alert and comfortable.
--- NOTE | 2019-01-19 16:58 | ANES ---
Post Anesthesia Assessment - Vital Signs Vitals: Last Vital Signs Temp 37.4 C 01/19/19 14:07 Pulse 80 01/19/19 14:07 Resp 18 01/19/19 14:07 BP 121/71 01/19/19 14:07 Pulse Ox 96 01/19/19 14:07 Airway Patency: Normal - Mental Status Level Of Consciousness: Awake - Pain Level Pain Score: 0 - N/V Assessment Nausea/Vomiting Presence: None Dehydration:: No
[2019-01-19] MEDS: oxyCODONE HCL/ACETAMINOPHEN 1 TAB TABLET PO PRN ×2 (19:29→23:19)
[2019-01-19] MEDS: SENNOSIDES/DOCUSATE SODIUM 1 TAB TABLET PO SCH (21:11)
[2019-01-19] MEDS: ceFAZolin SODIUM 1 GM in DEXTROSE 5 % IN WATER 100 ML IV SCH ×2 (21:22)
[2019-01-20] MEDS: MORPHINE SULFATE 2 MG/ML DISP.SYRIN IV PRN ×2 (02:18→12:11)
[2019-01-20] MEDS: oxyCODONE HCL/ACETAMINOPHEN 1 TAB TABLET PO PRN ×4 (03:21→19:54)
[2019-01-20] MEDS: ceFAZolin SODIUM 1 GM in DEXTROSE 5 % IN WATER 100 ML IV SCH ×4 (05:41→15:46)
[2019-01-20 06:12] LABS: Hemoglobin 9.2 gm/dL (12.5-16.0); Mean Cell Volume 101.1 fl (78-100); Mean Corpuscular Hemoglobin 34.5 pg (27-31); Mean Corpuscular Hgb Conc 34.1 g/dl (32-36); Mean Platelet Volume 9.8 fl (8-12.5); Platelet Count 122 K/mm3 (150-450); Red Blood Count 2.67 M/mm3 (4.2-5.4); Red Cell Distribution Width 13.4 % (11.5-14.0); White Blood Count 5.9 K/mm3 (4.0-10.5)
[2019-01-20 06:21] LABS: Anion Gap 11.6 mmol/L (6.8-13.8); BUN/Creatinine Ratio 14.2 (9.0-21.6); Calcium * 7.7 mg/dL (7.9-10.9); Estimated Creat Clear 57.6; Potassium 3.6 mmol/L (3.4-4.6)
--- NOTE | 2019-01-20 08:32 | PN ---
Subjective - Date and Time Seen Date: 01/20/19 Time: 08:26 Subjective Narrative: No acute events overnight. Complaining of hip and L foot pain this am. Having a lot of itching from pain meds. Objective - Vitals Vitals: Last Vital Signs Temp 37.0 C 01/19/19 22:13 Pulse 61 01/20/19 05:23 Resp 18 01/19/19 22:13 BP 96/57 01/20/19 05:23 Pulse Ox 95 01/20/19 05:23 - Abnormal Lab Findings Abnormal Lab Findings: Abnormal Lab Results 01/19/19 01/20/19 01/20/19 Range/Units 07:52 06:09 06:09 RBC 2.67 L (4.2-5.4) M/mm3 Hgb 9.2 L (12.5-16.0) gm/dL Hct 27.0 L (37.0-47.0) % MCV 101.1 H (78-100) fl MCH 34.5 H (27-31) pg Plt Count 122 L (150-450) K/mm3 Est GFR (Non-Af Amer) 56 L D (60-130) mL/min Random Glucose 122 H (70-110) mg/dL Calcium 7.7 L (7.9-10.9) mg/dL Urine Blood 5 H (NEGATIVE) /ul - Exam Exam Narrative: Gen: A&Ox3, NAD Resp: breathing nonlabored CV: RRR MSK: LLE--> dressings c/d/i, diffusely tender over hip, tender diffusely over lateral aspect of foot, SILT, cap refill brisk Radiology: Plain films of foot and ankle demonstrate no fractures, mild scattered degenerative changes of midfoot, no significant pathology noted Cauti Physician Documentation - Urinary Catheter Management Urethral ([place]) Date of Insertion: 01/19/19 Time of Insertion: 07:02 Assessment/Plan Plan Narrative: 58 yo F w/ L intertrochanteric femur fx s/p short cephalomedullary nailing, POD #1. -WBAT, ROM as tolerated -foot/ankle films negative -nondisplaced radial styloid fx --> continue cock up wrist brace -oral pain meds -benadryl for itching -PT/OT -DVT ppx: lovenox/SCDs/teds -monitor for withdrawal -dispo: continue inpatient care
[2019-01-20] MEDS ORDERED: chlordiazePOXIDE HCL 10 MG CAPSULE PO PRN (09:44)
[2019-01-20] MEDS ORDERED: GABAPENTIN 300 MG CAPSULE PO PRN (09:45)
[2019-01-20] MEDS ORDERED: ALBUTEROL SULFATE 2.5 MG/0.5 ML VIAL.NEB IH PRN (10:00)
--- NOTE | 2019-01-20 10:01 | PN ---
Subjective - Date and Time Seen Date: 01/20/19 Time: 07:50 Subjective Narrative: Patients mainly concerned about pruritus. Complaining of left ankle and foot pain. States pain is not well controlled. Otherwise no other complaints. No other concerns overnight. VSS. Appetite at baseline. Normal BM. PT on board. Objective - Review of Systems Generalized/Overall Review: Reports: Weakness. Denies: Chills, Fever Respiratory: Denies: Cough, Shortness of Breath Cardiac: Denies: Chest Pain Abdominal: Reports: Nausea. Denies: Vomiting Musculoskeletal Complaints: Reports: Joint Pain - Left ankle and foot along with left hip Neurological: Denies: Tremors Skin: Reports: Other - itching - Vitals Vitals: Last Vital Signs Temp 37.0 C 01/19/19 22:13 Pulse 61 01/20/19 05:23 Resp 18 01/19/19 22:13 BP 96/57 01/20/19 05:23 Pulse Ox 95 01/20/19 05:23 - Abnormal Lab Findings Abnormal Lab Findings: Abnormal Lab Results 01/20/19 01/20/19 Range/Units 06:09 06:09 RBC 2.67 L (4.2-5.4) M/mm3 Hgb 9.2 L (12.5-16.0) gm/dL Hct 27.0 L (37.0-47.0) % MCV 101.1 H (78-100) fl MCH 34.5 H (27-31) pg Plt Count 122 L (150-450) K/mm3 Est GFR (Non-Af Amer) 56 L D (60-130) mL/min Random Glucose 122 H (70-110) mg/dL Calcium 7.7 L (7.9-10.9) mg/dL - Exam Constitutional: Present: Alert, Oriented x3, Cooperative Respiratory: Present: chest non-tender, lungs clear, normal breath sounds Cardiovascular/Chest: Present: normal peripheral pulses, regular rate, rhythm Abdomen: Present: Normal bowel sounds Extremity: Present: normal inspection, no pedal edema, leg pain Skin Exam: Present: normal color Appearance: Present: appropriate appearance Eye contact: Present: cooperative Cauti Physician Documentation - Urinary Catheter Management Urethral ([place]) Cath placed during this visit: yes Urethral Indwelling: Yes Reason for Continuing Indwelling Catheter: Not indwelling catheter - Unable to ambulate Date of Insertion: 01/19/19 Time of Insertion: 07:02 Assessment/Plan Plan Narrative: 1. Intertrochanteric fracture of left femur s/p repair. POD #1 - Continue care as per Ortho recommendations. - Continue PT as tolerated - Pain control with Tylenol and morphine PRN - Cannot ambulate secondary to pain, chaparro inserted 2. Alcohol abuse - CIWA score: 9 - Switched from Valium to Libirum 10 mg TID PRN for withdrawal symptoms - Continue Banana bag 3. Distal radius fracture - Continue care as per Ortho recommendations. 4. Pruritus - Benadryl PRN 4. Hypertension - Stable and well controlled. - Continue Home medications. 5. Tobacco abuse - Continue nicotine patch PRN. Diet: Regular diet DVT Prophylaxis: SCD's CODE STATUS: FULL CODE Disposition:Will await Ortho recommendations.
[2019-01-20] MEDS: LOSARTAN POTASSIUM 50 MG TABLET PO SCH (11:07)
[2019-01-20] MEDS: amLODIPine BESYLATE 10 MG TABLET PO SCH (11:08)
[2019-01-20] MEDS: ALPRAZolam 0.5 MG TABLET PO PRN (11:19)
[2019-01-20] MEDS ORDERED: NORMAL SALINE 1,000 ML IV ONE (11:36)
[2019-01-20] MEDS ORDERED: PROCHLORPERAZINE EDISYLATE 5 MG/ML VIAL IM PRN (11:44)
[2019-01-20] MEDS: PROMETHAZINE HCL 25 MG TABLET PO PRN ×2 (12:07→18:11)
[2019-01-20] MEDS: BUDESONIDE 0.25 MG/2 ML VIAL.NEB IH SCH ×2 (12:38→18:06)
[2019-01-20] MEDS: buPROPion HCL 100 MG TABLET PO SCH (13:20)
[2019-01-20] MEDS: ENOXAPARIN SODIUM 40 MG/0.4 ML SYRG SC SCH (15:46)
[2019-01-20] MEDS: ALBUTEROL SULFATE 2.5 MG/0.5 ML VIAL.NEB IH SCH (18:06)
[2019-01-20] MEDS: SENNOSIDES/DOCUSATE SODIUM 1 TAB TABLET PO SCH (21:19)
[2019-01-20] MEDS: PINDOLOL 10 MG PO SCH (21:19)
[2019-01-20] MEDS: diphenhydrAMINE HCL 50 MG CAPSULE PO PRN (21:22)
[2019-01-21] MEDS: PROMETHAZINE HCL 25 MG TABLET PO PRN ×2 (00:34→08:58)
[2019-01-21] MEDS: oxyCODONE HCL/ACETAMINOPHEN 1 TAB TABLET PO PRN ×6 (00:34→22:03)
[2019-01-21] MEDS: ALPRAZolam 0.5 MG TABLET PO PRN ×2 (04:36→18:05)
[2019-01-21 05:52] LABS: Mean Cell Volume 102.6 fl (78-100); Mean Corpuscular Hemoglobin 34.9 pg (27-31); Mean Platelet Volume 10.2 fl (8-12.5); Platelet Count 106 K/mm3 (150-450); Red Blood Count 2.29 M/mm3 (4.2-5.4); Red Cell Distribution Width 13.6 % (11.5-14.0); White Blood Count 7.9 K/mm3 (4.0-10.5)
[2019-01-21 06:02] LABS: Anion Gap 12.7 mmol/L (6.8-13.8); BUN/Creatinine Ratio 13.8 (9.0-21.6); Carbon Dioxide 24.9 mmol/L (24-32.6); Estimated Creat Clear 56.1; Potassium 3.6 mmol/L (3.4-4.6)
[2019-01-21] MEDS: ALBUTEROL SULFATE 2.5 MG/0.5 ML VIAL.NEB IH SCH ×2 (06:05→18:11)
[2019-01-21] MEDS: BUDESONIDE 0.25 MG/2 ML VIAL.NEB IH SCH ×2 (06:08→18:13)
[2019-01-21 06:15] LABS: Hematocrit 23.5 % (37.0-47.0)
[2019-01-21] MEDS: PANTOPRAZOLE SODIUM 20 MG TABLET.DR PO SCH (08:05)
[2019-01-21] MEDS ORDERED: FUROSEMIDE 10 MG/ML VIAL IV ONE (08:18)
[2019-01-21 08:44] LABS: Prothrombin Time (Patient) 9.6 Seconds (9.1-10.7)
[2019-01-21 08:45] LABS: INR 0.97 INR (0.92-1.08); Partial Thrombolplastin Time 29.1 Seconds (24-32)
[2019-01-21] MEDS: LOSARTAN POTASSIUM 50 MG TABLET PO SCH (08:50)
[2019-01-21] MEDS: PINDOLOL 10 MG PO SCH ×2 (08:50→22:04)
[2019-01-21] MEDS: amLODIPine BESYLATE 10 MG TABLET PO SCH (08:50)
[2019-01-21] MEDS: buPROPion HCL 100 MG TABLET PO SCH (08:51)
[2019-01-21 08:59] LABS: Hematocrit 25.6 % (37.0-47.0); Hemoglobin 8.5 gm/dL (12.5-16.0)
--- NOTE | 2019-01-21 09:55 | PN ---
Subjective - Date and Time Seen Date: 01/21/19 Time: 07:30 Subjective Narrative: Patient doing well overnight. No complaints. No withdrawal symptoms present. Pain of the left hip and wrist have significantly improved. Symptoms are better managed with Xanax and gabapentin. Appetite is at baseline. Has not had a bowel movement. No fever or chills. No other concerns. Objective - Review of Systems Generalized/Overall Review: Reports: Weakness Respiratory: Denies: Shortness of Breath Cardiac: Denies: Chest Pain, Edema Abdominal: Denies: Nausea, Vomiting Musculoskeletal Complaints: Reports: Joint Pain - left hip and wrist pain - Vitals Vitals: Last Vital Signs Temp 36.5 C 01/21/19 06:38 Pulse 85 01/21/19 08:50 Resp 20 01/21/19 06:38 BP 90/47 01/21/19 08:50 Pulse Ox 100 01/21/19 06:38 - Abnormal Lab Findings Abnormal Lab Findings: Abnormal Lab Results 01/21/19 01/21/19 01/21/19 Range/Units 06:00 06:00 08:35 RBC 2.29 L (4.2-5.4) M/mm3 Hgb 8.0 L 8.5 L (12.5-16.0) gm/dL Hct 23.5 L* 25.6 L (37.0-47.0) % MCV 102.6 H (78-100) fl MCH 34.9 H (27-31) pg Plt Count 106 L (150-450) K/mm3 Est GFR (Non-Af Amer) 55 L (60-130) mL/min Random Glucose 115 H (70-110) mg/dL Crossmatch 01/21/19 Range/Units 08:35 RBC (4.2-5.4) M/mm3 Hgb (12.5-16.0) gm/dL Hct (37.0-47.0) % MCV (78-100) fl MCH (27-31) pg Plt Count (150-450) K/mm3 Est GFR (Non-Af Amer) (60-130) mL/min Random Glucose (70-110) mg/dL Crossmatch See Detail - Exam Constitutional: Present: Alert, Oriented x3, Cooperative, Well developed Respiratory: Present: lungs clear, normal breath sounds Cardiovascular/Chest: Present: normal peripheral pulses, regular rate, rhythm, no chest tenderness Abdomen: Present: Normal bowel sounds, soft, nontender Extremity: Present: normal inspection, no pedal edema, no calf tenderness Skin Exam: Present: normal color, warm/dry, other - Bandage C/D/I Appearance: Present: appropriate appearance Cauti Physician Documentation - Urinary Catheter Management Urethral (Chaparro) Urethral Indwelling: No Reason for Continuing Indwelling Catheter: Not indwelling catheter Date of Insertion: 01/19/19 Time of Insertion: 07:02 Assessment/Plan Plan Narrative: 1. Intertrochanteric fracture of left femur s/p repair. POD #2 - Continue care as per Ortho recommendations. - Continue PT as tolerated - Pain control with Tylenol and morphine PRN - Cannot ambulate secondary to pain, chaparro inserted 2. Distal radius fracture - Continue care as per Ortho recommendations. 3. Anemia due to acute blood loss H/H: 8.0/23.5 - Dr Ortez notified - Type & Screen Completed - No need for transfusion since patient is asymptomatic. 4. Alcohol abuse - CIWA score: <5 - Librium PRN, do not administer in conjuction with Xanax and Gabapentin - D/C banana bag 5. Pruritus - Benadryl PRN 6. Hypertension - Hold Norvasc, BP running on the lower end. 7. Tobacco abuse - Continue nicotine patch PRN. Diet: Regular diet DVT Prophylaxis: Lovenox CODE STATUS: FULL CODE Disposition:Will await Ortho recommendations. Patient is stating she would like short term placement as she cannot take care of herself at home. - Problems/Diagnosis (1) Anemia due to blood loss, acute Problem: Acute (2) Intertrochanteric fracture of left femur Problem: Acute Qualifiers: Encounter type: initial encounter Fracture type: closed Fracture alignment: displaced Qualified Code(s): S72.142A - Displaced intertrochanteric fracture of left femur, initial encounter for closed fracture (3) Distal radius fracture Problem: Acute (4) Alcohol abuse Problem: Chronic (5) Hypertension Problem: Chronic (6) Tobacco abuse Problem: Chronic
[2019-01-21] MEDS: diphenhydrAMINE HCL 25 MG CAPSULE PO PRN ×2 (10:32→10:39)
[2019-01-21] MEDS: ENOXAPARIN SODIUM 40 MG/0.4 ML SYRG SC SCH (15:53)
[2019-01-21] MEDS: diphenhydrAMINE HCL 50 MG CAPSULE PO PRN (19:07)
[2019-01-21] MEDS: SENNOSIDES/DOCUSATE SODIUM 1 TAB TABLET PO SCH (22:04)
[2019-01-22] MEDS: diphenhydrAMINE HCL 50 MG CAPSULE PO PRN (00:22)
[2019-01-22] MEDS: oxyCODONE HCL/ACETAMINOPHEN 1 TAB TABLET PO PRN ×6 (02:05→23:54)
[2019-01-22 05:53] LABS: Mean Cell Volume 105.2 fl (78-100); Mean Corpuscular Hemoglobin 34.9 pg (27-31); Mean Corpuscular Hgb Conc 33.2 g/dl (32-36); Mean Platelet Volume 10.3 fl (8-12.5); Neutrophil # 4.2 K/mm3 (1.3-6.0); Neutrophil % 66.5 % (42-75.0); Platelet Count 126 K/mm3 (150-450); Red Blood Count 2.12 M/mm3 (4.2-5.4); Red Cell Distribution Width 13.5 % (11.5-14.0); White Blood Count 6.3 K/mm3 (4.0-10.5)
[2019-01-22 05:57] LABS: Hematocrit 22.3 % (37.0-47.0); Hemoglobin 7.4 gm/dL (12.5-16.0)
[2019-01-22] MEDS: ALBUTEROL SULFATE 2.5 MG/0.5 ML VIAL.NEB IH SCH ×2 (05:59→18:08)
[2019-01-22] MEDS: BUDESONIDE 0.25 MG/2 ML VIAL.NEB IH SCH ×2 (06:01→18:08)
[2019-01-22 06:09] LABS: Albumin * 2.5 gm/dl (3.4-5.0); BUN/Creatinine Ratio 12.6 (9.0-21.6); Bilirubin, Total 0.5 mg/dL (0.0-1.1); Ca. Corrected For Albumin 9.1 mg/dL (8.4-10.2); Calcium * 8.2 mg/dL (7.9-10.9); Carbon Dioxide 26.6 mmol/L (24-32.6); Potassium 3.6 mmol/L (3.4-4.6); Total Protein 6.6 gm/dL (6.2-8.2)
[2019-01-22] MEDS: ALPRAZolam 0.5 MG TABLET PO PRN ×2 (06:17→20:06)
[2019-01-22] MEDS: PANTOPRAZOLE SODIUM 20 MG TABLET.DR PO SCH (06:39)
[2019-01-22] MEDS: buPROPion HCL 100 MG TABLET PO SCH (08:21)
[2019-01-22] MEDS: diphenhydrAMINE HCL 25 MG CAPSULE PO PRN ×2 (08:27→20:06)
[2019-01-22] MEDS: PROMETHAZINE HCL 25 MG TABLET PO PRN ×2 (08:30→14:59)
[2019-01-22] MEDS: PINDOLOL 5 MG PO SCH ×2 (09:07→20:07)
--- NOTE | 2019-01-22 11:53 | PN ---
Subjective - Date and Time Seen Date: 01/22/19 Time: 11:47 Subjective Narrative: No acute events overnight. Pain controlled. Having some muscle spasms. Objective - Vitals Vitals: Last Vital Signs Temp 36.8 C 01/22/19 11:05 Pulse 76 01/22/19 11:05 Resp 16 01/22/19 11:05 BP 110/64 01/22/19 11:05 Pulse Ox 99 01/22/19 11:05 - Abnormal Lab Findings Abnormal Lab Findings: Abnormal Lab Results 01/22/19 01/22/19 Range/Units 05:00 05:30 RBC 2.12 L (4.2-5.4) M/mm3 Hgb 7.4 L* (12.5-16.0) gm/dL Hct 22.3 L* (37.0-47.0) % MCV 105.2 H (78-100) fl MCH 34.9 H (27-31) pg Plt Count 126 L (150-450) K/mm3 Monocytes % 10.1 H (0.0-9) % Lymphocytes # 1.34 L (1.5-3.5) k/mm3 Est GFR (Non-Af Amer) 58 L (60-130) mL/min Albumin 2.5 L (3.4-5.0) gm/dl - Exam Exam Narrative: Gen: A&Ox3, NAD Resp: breathing nonlabored on RA CV: RRR MSK: LLE--> dressings with scant SS drainage, mild postop swelling and tenderness, SILT, distal cap refill brisk Cauti Physician Documentation - Urinary Catheter Management Urethral (Dueñas) Urethral Indwelling: No Date of Insertion: 01/19/19 Time of Insertion: 07:02 Assessment/Plan Plan Narrative: 58 yo F w/ L intertrochanteric femur fx s/p closed reduction and cephalomedullary nailing, POD #3. -WBAT, ROM as tolerated. -oral pain meds -reg diet -PT/OT -DVT ppx: lovenox/SCDs/teds -continue monitoring for signs of withdrawal -acute blood loss anemia - continue to monitor -continue care per Medicine team -dispo: plan for d/c to SNF. Ortho Discharge Recommendations: 1. WBAT, ROM as tolerated. 2. Dressing changes every 2-3 days with 4x4 gauze and tape. Keep wounds completely dry. 3. DVT ppx: 10 days lovenox followed by 6 weeks of 325 mg ASA daily. 4. PT at SNF followed by outpatient PT once discharged for progressive upright mobility and strengthening. 5. Follow up in Orthopedic clinic 2 weeks postoperatively ([phone]).
[2019-01-22] MEDS: ENOXAPARIN SODIUM 40 MG/0.4 ML SYRG SC SCH (15:23)
--- NOTE | 2019-01-22 15:41 | PN ---
Subjective - Date and Time Seen Date: 01/22/19 Time: 10:41 Subjective Narrative: Pt in good spirits today. Pain much better controlled, tolerating PT much better today. No acute events overnight and her vital signs have been stable. Low CIWA scores. Objective - Review of Systems Generalized/Overall Review: Denies: Chills, Fever EENTM: Reports: No Symptoms Reported Respiratory: Denies: Cough, Shortness of Breath Cardiac: Denies: Chest Pain, Palpitations Abdominal: Denies: Nausea, Vomiting, Abdominal Pain Genitourinary Symptoms: Reports: No Symptoms Reported Musculoskeletal Complaints: Reports: Joint Pain. Denies: Joint Swelling Neurological: Denies: Headache, Anxiety, Depressed, Numbness, Tingling - Vitals Vitals: Last Vital Signs Temp 37.0 C 01/22/19 14:21 Pulse 78 01/22/19 14:21 Resp 20 01/22/19 14:21 BP 117/46 01/22/19 14:21 Pulse Ox 99 01/22/19 14:21 - Abnormal Lab Findings Abnormal Lab Findings: Abnormal Lab Results 01/22/19 01/22/19 Range/Units 05:00 05:30 RBC 2.12 L (4.2-5.4) M/mm3 Hgb 7.4 L* (12.5-16.0) gm/dL Hct 22.3 L* (37.0-47.0) % MCV 105.2 H (78-100) fl MCH 34.9 H (27-31) pg Plt Count 126 L (150-450) K/mm3 Monocytes % 10.1 H (0.0-9) % Lymphocytes # 1.34 L (1.5-3.5) k/mm3 Est GFR (Non-Af Amer) 58 L (60-130) mL/min Albumin 2.5 L (3.4-5.0) gm/dl - Exam Constitutional: Present: Alert, Oriented x3, Cooperative, Well developed ENT Exam: Present: hearing grossly normal, pharynx normal. Absent: nasal congestion Neck: Present: non-tender, supple Respiratory: Present: lungs clear, normal breath sounds, wheezing - minimal, in the bases Cardiovascular/Chest: Present: normal peripheral pulses, regular rate, rhythm, no murmur Abdomen: Present: Normal bowel sounds, soft, nontender, nondistended /Rectal: Present: Exam deferred Extremity: Present: leg pain Skin Exam: Present: normal color, warm/dry, other - Incision clean/dry/intact Neurologic: Present: no motor/sensory deficits, alert, normal mood/affect, oriented x 3 Appearance: Present: appropriate appearance, appropriate insight Eye contact: Present: cooperative, good eye contact Thoughts: Present: normal thought pattern, normal mood /affect Cauti Physician Documentation - Urinary Catheter Management Urethral (Dueñas) Urethral Indwelling: No Date of Insertion: 01/19/19 Time of Insertion: 07:02 Assessment/Plan Plan Narrative: Post op day 3: overall patient doing very well. Her pain is well controlled. Plan is for patient to be discharged to facility for inpatient rehab, likely tomorrow. Incision clean and dry. Lovenox for DVT ppx for 10 days with ASA for next 30 days following. Alcohol dependence: patient has been stable, low ciwa scores, vitals WNL. She is doing well with this. HTN: well controlled, no changes Distal radius fx: stable, continue with bracing Plan for discharge likely tomorrow, nurse will call with any questions or concerns. - Problems/Diagnosis (1) Intertrochanteric fracture of left femur Problem: Acute Qualifiers: Encounter type: initial encounter Fracture type: closed Fracture alignment: displaced Qualified Code(s): S72.142A - Displaced intertrochanteric fracture of left femur, initial encounter for closed fracture (2) Alcohol abuse Problem: Chronic (3) Hypertension Problem: Chronic (4) Distal radius fracture Problem: Acute (5) Tobacco abuse Problem: Chronic
[2019-01-22] MEDS: SENNOSIDES/DOCUSATE SODIUM 1 TAB TABLET PO SCH (20:07)
[2019-01-23] MEDS: oxyCODONE HCL/ACETAMINOPHEN 1 TAB TABLET PO PRN ×5 (04:30→22:35)
[2019-01-23] MEDS: ALBUTEROL SULFATE 2.5 MG/0.5 ML VIAL.NEB IH SCH ×2 (06:00→18:09)
[2019-01-23] MEDS: BUDESONIDE 0.25 MG/2 ML VIAL.NEB IH SCH ×2 (06:00→18:09)
[2019-01-23] MEDS: PANTOPRAZOLE SODIUM 20 MG TABLET.DR PO SCH (06:42)
[2019-01-23] MEDS: diphenhydrAMINE HCL 50 MG CAPSULE PO PRN (06:50)
[2019-01-23] MEDS: buPROPion HCL 100 MG TABLET PO SCH (08:47)
[2019-01-23] MEDS: PINDOLOL 5 MG PO SCH ×2 (08:47→20:57)
[2019-01-23 08:56] LABS: Mean Cell Volume 105.2 fl (78-100); Mean Corpuscular Hemoglobin 35.4 pg (27-31); Mean Corpuscular Hgb Conc 33.6 g/dl (32-36); Mean Platelet Volume 9.3 fl (8-12.5); Platelet Count 184 K/mm3 (150-450); Red Blood Count 2.12 M/mm3 (4.2-5.4); Red Cell Distribution Width 13.7 % (11.5-14.0); White Blood Count 6.8 K/mm3 (4.0-10.5)
[2019-01-23 08:57] LABS: Hemoglobin 7.5 gm/dL (12.5-16.0)
[2019-01-23 08:58] LABS: Hematocrit 22.3 % (37.0-47.0)
[2019-01-23] MEDS: ALPRAZolam 0.5 MG TABLET PO PRN ×2 (12:52→20:57)
[2019-01-23] MEDS: PROMETHAZINE HCL 25 MG TABLET PO PRN (14:19)
[2019-01-23] MEDS: ENOXAPARIN SODIUM 40 MG/0.4 ML SYRG SC SCH (15:07)
--- NOTE | 2019-01-23 15:59 | PN ---
Subjective - Date and Time Seen Date: 01/23/19 Time: 15:37 Subjective Narrative: Patient continues to do well with her rehabilitation following left total hip arthroplasty. Patient's pain is well controlled. Patient's vital signs are stable. Patient had no acute events overnight. CIWA score is still being monitored which remain low. Hemoglobin also stable. Objective - Review of Systems Generalized/Overall Review: Denies: Weakness, Chills, Fever EENTM: Reports: No Symptoms Reported Respiratory: Denies: Cough, Shortness of Breath Cardiac: Denies: Chest Pain, Palpitations Abdominal: Denies: Nausea, Vomiting, Abdominal Pain Genitourinary Symptoms: Reports: No Symptoms Reported Musculoskeletal Complaints: Reports: Joint Pain, Muscle Pain Neurological: Denies: Headache, Numbness, Tingling Skin: Reports: No Symptoms Reported - Vitals Vitals: Last Vital Signs Temp 37.1 C 01/23/19 15:17 Pulse 74 01/23/19 15:17 Resp 15 01/23/19 15:17 BP 130/63 01/23/19 15:17 Pulse Ox 99 01/23/19 15:17 - Abnormal Lab Findings Abnormal Lab Findings: Abnormal Lab Results 01/21/19 01/23/19 Range/Units 08:35 08:45 RBC 2.12 L (4.2-5.4) M/mm3 Hgb 7.5 L* (12.5-16.0) gm/dL Hct 22.3 L* (37.0-47.0) % MCV 105.2 H (78-100) fl MCH 35.4 H (27-31) pg Crossmatch See Detail - Exam Constitutional: Present: Alert, Oriented x3, Cooperative, Well nourished, No distress ENT Exam: Present: hearing grossly normal Neck: Present: non-tender, supple Respiratory: Present: lungs clear, normal breath sounds Cardiovascular/Chest: Present: regular rate, rhythm, no murmur Abdomen: Present: Normal bowel sounds, soft, nontender Extremity: Present: normal capillary refill, leg pain. Absent: non-tender - left distal radius ttp Skin Exam: Present: normal color, warm/dry, other - Incision clean dry and intact Neurologic: Present: alert, oriented x 3 Appearance: Present: appropriate appearance, appropriate insight Eye contact: Present: cooperative, good eye contact Thoughts: Present: normal thought pattern, normal mood /affect Cauti Physician Documentation - Urinary Catheter Management Urethral (Dueñas) Urethral Indwelling: No Date of Insertion: 01/19/19 Time of Insertion: 07:02 Assessment/Plan Plan Narrative: Post op day 4: overall patient doing very well. Her pain is well controlled. H/H stable. Plan is for patient to be discharged to facility for inpatient rehab, waiting to get approval. Incision clean and dry. Lovenox for DVT ppx for 10 days with ASA for next 30 days following. Alcohol dependence: patient has been stable, low ciwa scores, vitals WNL. She is doing well with this. HTN: well controlled, no changes Distal radius fx: stable, continue with bracing Plan for discharge likely tomorrow, nurse will call with any questions or concerns. - Problems/Diagnosis (1) Intertrochanteric fracture of left femur Problem: Acute Qualifiers: Encounter type: initial encounter Fracture type: closed Fracture alignment: displaced Qualified Code(s): S72.142A - Displaced intertrochanteric fracture of left femur, initial encounter for closed fracture (2) Alcohol abuse Problem: Chronic (3) Hypertension Problem: Chronic (4) Distal radius fracture Problem: Acute (5) Tobacco abuse Problem: Chronic
[2019-01-23] MEDS: SENNOSIDES/DOCUSATE SODIUM 1 TAB TABLET PO SCH (21:02)
[2019-01-23] MEDS: diphenhydrAMINE HCL 25 MG CAPSULE PO PRN (23:27)
[2019-01-24] MEDS: oxyCODONE HCL/ACETAMINOPHEN 1 TAB TABLET PO PRN ×3 (03:41→12:41)
[2019-01-24] MEDS: BUDESONIDE 0.25 MG/2 ML VIAL.NEB IH SCH (06:01)
[2019-01-24] MEDS: ALBUTEROL SULFATE 2.5 MG/0.5 ML VIAL.NEB IH SCH (06:02)
[2019-01-24] MEDS: PANTOPRAZOLE SODIUM 20 MG TABLET.DR PO SCH (06:40)
[2019-01-24] MEDS: ALPRAZolam 0.5 MG TABLET PO PRN (06:46)
[2019-01-24] MEDS: LOSARTAN POTASSIUM 50 MG TABLET PO SCH (08:24)
[2019-01-24] MEDS: PINDOLOL 5 MG PO SCH (08:25)
[2019-01-24] MEDS: buPROPion HCL 100 MG TABLET PO SCH (08:25)
[2019-01-24] MEDS: amLODIPine BESYLATE 10 MG TABLET PO SCH (08:25)
--- NOTE | 2019-01-24 11:57 | DS ---
(1) Intertrochanteric fracture of left femur Problem: Acute Qualifiers: Encounter type: initial encounter Fracture type: closed Fracture alignment: displaced Qualified Code(s): S72.142A - Displaced intertrochanteric fracture of left femur, initial encounter for closed fracture (2) Alcohol abuse Problem: Chronic (3) Hypertension Problem: Chronic (4) Distal radius fracture Problem: Acute (5) Tobacco abuse Problem: Chronic Date of Discharge:: 01/24/19 Description of Stay: 58-year-old female presented to the hospital with left hip and wrist pain. Patient was found to have in intertrochanteric fracture which was repaired by Dr. Ortez by close reduction cephalo-medullary fixation. Patient told the procedure well with no complications. Patient had anemia from blood loss but hemoglobin stabilized upon discharge. Hemoglobin was 7.5 day off discharge to SNF. While here vital signs been well controlled patient has no complications or guarding that., Currently brace and doing well. Patient also has left distal radial fracture from a fall. Of note patient was thought to be a risk for alcohol withdrawal due to extensive drinking history but the patient did not experience any withdrawal symptoms and had low CIWA scores throughout. She was never treated for alcohol withdrawal and is outside the range where this should be a concern. Patient will be discharged home on Percocet 1-2 every 6 hours as needed. Patient is to follow-up with Dr. Cleaning in 2 weeks. She is discharged home on Lovenox for another 5 days and then will be transitioned over to aspirin 325 daily for the next 6 weeks. Patient to be discharged on physical therapy and occupational therapy. No other changes to chronic medications. Procedures Performed: see notes below - Small she is Results and Findings: Lab Pending Results 01/19/19 06:50: PT 10.5, INR (Anticoag Therapy) 1.06, PTT ([place]) 24.7 01/19/19 07:00: WBC 11.7 H, RBC 3.29 L, Hgb 11.4 L, Hct 33.0 L, MCV 100.3 H, MCH 34.7 H, MCHC 34.5, RDW 13.2, Plt Count 161, MPV 9.7, Immature Gran % (Auto) 0.60 H, Immature Gran # (Auto) 0.07 H, Neutrophils % 84.7 H, Lymphocytes % 9.6 L, Monocytes % 4.6, Eosinophils % 0.2, Basophils % 0.3, Nucleated RBC % 0.0, Neutrophils # 9.9 H, Lymphocytes # 1.12 L, Monocytes # 0.5, Eosinophils # 0.0, Absolute Basophils 0.0 01/19/19 07:00: Sodium 134, Plasma Sodium 134, Potassium 4.4, Chloride 99, Carbon Dioxide 24.9, Anion Gap 14.5 H, BUN 17, Creatinine 0.86, Est GFR (Non-Af Amer) 72, BUN/Creatinine Ratio 19.8, Random Glucose 103, Calcium 7.9, Calcium Adj for Albumin 8.1 L, Total Bilirubin 0.4, AST 99 H, ALT 50, Alkaline Phosphatase 95, Total Protein 7.4, Albumin 3.4 01/19/19 07:00: Ethyl Alcohol 212.0 H 01/19/19 07:52: Urine Color Pale yellow, Urine Appearance Clear, Urine pH 6.0, Ur Specific [place] <=1.005, Urine Protein Negative, Urine Glucose (UA) Negative, Urine Ketones Negative, Urine Blood 5 H, Urine Nitrate Negative, Urine Bilirubin Negative, Urine Urobilinogen Normal, Ur Leukocyte Esterase Negative, Urine RBC None seen, Urine WBC None seen, Ur Epithelial Cells None seen, Urine Bacteria Trace, Urine Culture Comments Culture to follow 01/20/19 06:09: WBC 5.9 D, RBC 2.67 L, Hgb 9.2 L, Hct 27.0 L, MCV 101.1 H, MCH 34.5 H, MCHC 34.1, RDW 13.4, Plt Count 122 L, MPV 9.8 01/20/19 06:09: Sodium 134, Plasma Sodium 134, Potassium 3.6, Chloride 100, Carbon Dioxide 26.0, Anion Gap 11.6, BUN 15, Creatinine 1.06, Est GFR (Non-Af Amer) 56 L D, BUN/Creatinine Ratio 14.2, Random Glucose 122 H, Calcium 7.7 L 01/21/19 05:40: PT 9.6, INR (Anticoag Therapy) 0.97, PTT ([place]) 29.1 01/21/19 06:00: WBC 7.9 D, RBC 2.29 L, Hgb 8.0 L, Hct 23.5 L*, MCV 102.6 H, MCH 34.9 H, MCHC 34.0, RDW 13.6, Plt Count 106 L, MPV 10.2 01/21/19 06:00: Sodium 135, Plasma Sodium 135, Potassium 3.6, Chloride 101, Carbon Dioxide 24.9, Anion Gap 12.7, BUN 15, Creatinine 1.09, Est GFR (Non-Af Amer) 55 L, BUN/Creatinine Ratio 13.8, Random Glucose 115 H, Calcium 8.0 01/21/19 08:35: Hgb 8.5 L, Hct 25.6 L 01/21/19 08:35: Blood Type O Negative, Antibody Screen Negative, Crossmatch See Detail 01/22/19 05:00: WBC 6.3 D, RBC 2.12 L, Hgb 7.4 L*, Hct 22.3 L*, MCV 105.2 H, MCH 34.9 H, MCHC 33.2, RDW 13.5, Plt Count 126 L, MPV 10.3, Immature Gran % (Auto) 0.30, Immature Gran # (Auto) 0.02, Neutrophils % 66.5, Lymphocytes % 21.2, Monocytes % 10.1 H, Eosinophils % 1.4, Basophils % 0.5, Nucleated RBC % 0.0, Neutrophils # 4.2, Lymphocytes # 1.34 L, Monocytes # 0.6, Eosinophils # 0.1, Absolute Basophils 0.0 01/22/19 05:30: Sodium 136, Plasma Sodium 136, Potassium 3.6, Chloride 102, Carbon Dioxide 26.6, Anion Gap 11.0, BUN 13, Creatinine 1.03, Est GFR (Non-Af Amer) 58 L, BUN/Creatinine Ratio 12.6, Random Glucose 88, Calcium 8.2, Calcium Adj for Albumin 9.1, Total Bilirubin 0.5, AST 28, ALT 35, Alkaline Phosphatase 80, Total Protein 6.6, Albumin 2.5 L 01/23/19 08:45: WBC 6.8, RBC 2.12 L, Hgb 7.5 L*, Hct 22.3 L*, MCV 105.2 H, MCH 35.4 H, MCHC 33.6, RDW 13.7, Plt Count 184, MPV 9.3 Discharge Location: [facility] Disposition: SNF Condition: Fair Level of Care: SNF Discharge Activity: Weight bearing Discharge Diet: General/regular food Jail Therapy: Physical Therapy, Occupation Therapy Additional Patient Instructions (free text): Ortho Discharge Recommendations: 1. WBAT, ROM as tolerated. 2. Dressing changes every 2-3 days with 4x4 gauze and tape. Keep wounds compl etely dry. 3. DVT ppx: 10 days lovenox (total) followed by 6 weeks of 325 mg ASA daily. Last dose of Lovenox is 01/29/19. Start ASA on 01/30/19. 4. PT at [facility] followed by outpatient PT once discharged for progressive upright mobility and strengthening. 5. Follow up in Orthopedic clinic 2 weeks postoperatively ([phone]). Prescriptions (Any new or edited meds): Aspirin 325 mg PO DAILY #42 tab Enoxaparin Sodium [Lovenox] 40 mg SC Q24H #5 disp.syrin oxyCODONE HCL [Oxycodone] 2 tab PO Q6H PRN #60 tab PRN Reason: Severe Pain Complete Home Medications List: Complete Home Medication List: ALPRAZolam [Xanax] 0.5 mg PO BID 01/19/19 Albuterol Sulfate [Ventolin HFA] 2 puff INHALATION QID 01/19/19 Fluticasone/Salmeterol [Advair 100-50 Diskus] 1 puff INHALATION BID 01/19/19 Gabapentin [Neurontin] 300 mg PO TID 01/19/19 Losartan Potassium 100 mg PO DAILY 01/19/19 Omeprazole [Prilosec] 20 mg PO DAILY 01/19/19 Pindolol 10 mg PO BID 01/19/19 amLODIPine BESYLATE [Norvasc] 20 mg PO DAILY 01/19/19 buPROPion HCL [Wellbutrin] 300 mg PO DAILY 01/19/19 Aspirin 325 mg PO DAILY #42 tab 01/24/19 Enoxaparin Sodium [Lovenox] 40 mg SC Q24H #5 disp.syrin 01/24/19 Magnesium Hydroxide [Milk Of Magnesia] 30 ml PO DAILY PRN udc 01/24/19 oxyCODONE HCL [Oxycodone] 2 tab PO Q6H PRN #60 tab 01/24/19
[2019-01-24 13:29] VITALS: BP 103/50
[2019-01-24] MEDS: ENOXAPARIN SODIUM 40 MG/0.4 ML SYRG SC SCH (14:05)
== END 2019-01-24 14:00 | DRG 481 ==
LOC: ER 05:13 → MS 06:45
PROVIDERS: ADMIT Family Medicine; ATTEND Family Medicine
DX: F17.210 Nicotine dependence, cigarettes, uncomplicated; W01.0XXA Fall on same level from slipping, tripping and stumbling without subsequent striking against object, initial encounter; I10 Essential (primary) hypertension; S52.512A Displaced fracture of left radial styloid process, initial encounter for closed fracture; M25.572 Pain in left ankle and joints of left foot; L29.9 Pruritus, unspecified; J44.9 Chronic obstructive pulmonary disease, unspecified; S72.142A Displaced intertrochanteric fracture of left femur, initial encounter for closed fracture; M32.9 Systemic lupus erythematosus, unspecified; Z95.0 Presence of cardiac pacemaker; F10.10 Alcohol abuse, uncomplicated; D62 Acute posthemorrhagic anemia
CPT/HCPCS: 36415; 71010; 71045; 73110; 73502; 73610; 73630; 80048; 80053; 80320; 81001; 85014; 85018; 85025; 85027; 85610; 85730; 86850; 87086; 93005; 94640; 96374; 96375; 96376; 97110; 97116; 97162; 97166; 97535; 99285; G0481; J2405